=== PATIENT | male | born 1955 | race Caucasian/White ===

== ENCOUNTER 2019-04-13 20:26 | Emergency (ER) | payer BC ==
[2016-03-26 12:27] VITALS: BP 161/88
[~2019-04-13 20:26] MED LIST: ADAL40PE SQ; ATEN100T PO; CELE200C PO; DULO60CA6 PO; HYDR-3164 PO; LISI-130 PO; MELO15TA23 PO
== END 2019-04-13 22:18 | disposition left against medical advice (07) ==
LOC: ER 20:26
DX: T14.8XXA Other injury of unspecified body region, initial encounter (principal); Z53.21 Procedure and treatment not carried out due to patient leaving prior to being seen by health care provider; W54.0XXA Bitten by dog, initial encounter; Y93.89 Activity, other specified; Y92.89 Other specified places as the place of occurrence of the external cause; Y99.8 Other external cause status

== ENCOUNTER → 2019-05-17 | Outpatient (CLI) | payer BC ==
[2016-03-26 12:27] VITALS: BP 161/88
[~2019-05-17] MED LIST changes: +TRAM50TA PO
[2019-05-17 09:37] LABS: BASO % 1 % (0-3); EOS # 0.2 x10^3/uL (0.0-0.7); EOS % 4 % (0-3); HEMATOCRIT 43.1 % (39.0-53.0); HEMOGLOBIN 14.4 g/dL (13.0-17.5); LYMPH # 1.3 x10^3/uL (1.0-4.8); LYMPH % 26 % (24-48); MEAN CORPUSCULAR HEMOGLOBIN 33 pg (25-35); MEAN CORPUSCULAR HGB CONC 33 g/dL (31-37); MEAN CORPUSCULAR VOLUME 98 fL (79-100); MONO # 0.6 x10^3/uL (0.0-1.1); MONO % 12 % (0-9); NEUT # 2.8 x10^3/uL (1.8-7.7); NEUT % 57 % (31-73); PLATELET COUNT 183 x10^3/uL (140-400); RED CELL DISTRIBUTION WIDTH 13.7 % (11.5-14.5); WHITE BLOOD COUNT 4.9 x10^3/uL (4.0-11.0)
[2019-05-17 09:48] LABS: PROTHROMBIN TIME PATIENT 12.6 SEC (11.7-14.0)
[2019-05-17 10:21] LABS: ALBUMIN 3.8 g/dL (3.4-5.0); CALCIUM 9.3 mg/dL (8.5-10.1); CREATININE 0.9 mg/dL (0.7-1.3); GFR 85.2; POTASSIUM 4.2 mmol/L (3.5-5.1)
[2019-05-18 00:07] LABS: HEMOGLOBIN A1C 6.2 % (4.8-5.6)
== END | disposition home or self-care (01) ==
LOC: SURGPAT 08:45
PROVIDERS: ATTEND Orthopaedic Surgery
DX: Z01.812 Encounter for preprocedural laboratory examination (principal); M17.12 Unilateral primary osteoarthritis, left knee; Z88.8 Allergy status to other drugs, medicaments and biological substances
CPT/HCPCS: 36415; 80048; 82040; 82306; 83036; 85025; 85610; 85651; 85730

== ENCOUNTER → 2019-06-01 | Outpatient (CLI) | payer BC ==
[2016-03-26 12:27] VITALS: BP 161/88
[~2019-06-01] MED LIST changes: +AMLO10TA8 PO; +ATOR40TA59 PO; +CALC60FO2 TP; +ESCITALOPRAM OX20 MG PO; +EZET10TA20 PO; +METF10007 PO; +METF500S5 PO; +METO50TA6 PO
--- NOTE | 2019-06-01 16:34 | RAD ---
EXAM: Chest, 2 views. HISTORY: Pain. COMPARISON: 03/19/2016 FINDINGS: 2 views of the chest are obtained. There is no infiltrate, pleural effusion or pneumothorax. The heart is normal in size. There is a stable granuloma overlying the left upper lobe. IMPRESSION: No acute pulmonary finding. Electronically signed by: Swapna Meredith MD (06/01/2019 4:32 PM) [id number]
== END | disposition home or self-care (01) ==
LOC: SURGPAT 13:26
PROVIDERS: ATTEND Orthopaedic Surgery
DX: Z01.818 Encounter for other preprocedural examination (principal); M17.12 Unilateral primary osteoarthritis, left knee; J84.10 Pulmonary fibrosis, unspecified
CPT/HCPCS: 36415; 71046; 87641

== ENCOUNTER 2019-06-15 11:31 | Observation (INO) | payer BC ==
[2019-06-15] VITALS (9 sets, daily range): BP systolic 101–141; BP diastolic 43–69
[~2019-06-15] VITALS: Ht 180.3 cm; Wt 117.9 kg
[~2019-06-15 11:31] MED LIST changes: +ACETAMINOPHEN 500 MG TABLET PO PRN; +CELECOXIB 100 MG CAPSULE. PO ONE; +HYDROmorphone 2 MG/ML VIAL IV PRN; +IV RINGERS,LACTATED 1000ML 1,000 ML IV SCH; +LIDOCAINE 1% PF 2 ML VIAL. ID PRN; +MORPHINE SULFATE 2 MG/ML VIAL. IV PRN; +ONDA4TAB12 PO; +OXYC1TAB15 PO; +PROCHLORPERAZINE 10 MG/2 ML VIAL. IV PRN; +TRANEXAMIC ACID 1,000 MG in IV NS 50ML -- 1ST BAG INJ ONE; +TRANEXAMIC ACID 1,000 MG in IV NS 50ML -- 2ND BAG INJ ONE; +VANCOMYCIN 1GM IVPB FOR OMNI 250 ML IV PRN; +ceFAZolin SODIUM 3 GM in IV D5W 100 ML IV PRN; +fentaNYL PF VIAL 100 MCG/2 ML VIAL IV PRN
[2019-06-15] MEDS ORDERED: TOBRAMYCIN POWDER 1.2 GM VIAL. ONE (11:54)
[2019-06-15] MEDS ORDERED: VANCOMYCIN 1 GM VIAL. ONE ×2 (11:54)
[2019-06-15] MEDS ORDERED: MORPHINE SULFATE 5 MG, KETOROLAC 30MG VIAL 30 MG, ROPIVacaine 0.5% PF 60 ML, EPINEPHrin... INT ART ONE ×5 (12:15)
[2019-06-15] MEDS ORDERED: CELECOXIB 100 MG CAPSULE. ONE (12:24)
[2019-06-15] MEDS ORDERED: INSULIN LISPRO 100 UNIT/ML 3ML VIAL for OP,RR ONLY. SQ PRN (12:30)
[2019-06-15 12:32] LABS: CREATININE 0.8 mg/dL (0.7-1.3); GFR 97.6; POTASSIUM 4.1 mmol/L (3.5-5.1)
[2019-06-15] MEDS ORDERED: MIDAZOLAM HCL/PF 2 MG/2 ML VIAL. ONE (12:34)
[2019-06-15] MEDS ORDERED: FAMOTIDINE 20 MG/2 ML VIAL ONE (12:34)
[2019-06-15] MEDS ORDERED: LIDOCAINE 2% PF 5 ML VIAL. ONE (12:34)
[2019-06-15] MEDS ORDERED: DEXAMETHASONE SOD PHOS 4 MG/ML VIAL ONE (12:34)
[2019-06-15] MEDS ORDERED: fentaNYL PF VIAL 100 MCG/2 ML VIAL ONE ×2 (12:34→15:17)
[2019-06-15] MEDS ORDERED: PROPOFOL 20 ML IV ONE (12:34)
[2019-06-15] MEDS ORDERED: ONDANSETRON PF 4 MG/2 ML VIAL. ONE (12:34)
[2019-06-15] MEDS ORDERED: ePHEDrine PF IN SALINE 50 MG/10 ML SYRINGE. IV ONE (12:55)
[2019-06-15] MEDS ORDERED: SEVOFLURANE 61 TO 120 MINUTES. IH ONE (14:04)
--- NOTE | 2019-06-15 14:17 | PDOC4 ---
Operative Note Operative Note Date of Procedure: June 15, 2019 Pre-Op Diagnosis: Left knee cellulitis and hematoma L03.116 Post-Op Diagnosis: Left knee cellulitis and hematoma L03.116 Procedure: irrigation and debridement left knee deep hematoma CPT 84660 Surgeon: Soledad Solano MD Instructional Technologist: ALLY Younger Anesthesia: General EBL: 50 mL Specimens Obtained: 1. superficial (bursa) fluid for aerobic, anaerobic, fungal and AFB cultures, sent in a specimen cup, there is a possibility that this culture is contaminated by skin young because the fluid ran over the skin as it flowed into the specimen cup 2. deep (synovial) fluid for aerobic, anaerobic, fungal, and AFB cultures sent in a specimen cup Complications: none Drains: none Findings: deep heavily clotted/coagulated hematoma, and a superficial hemat warner/bursal fluid collection which was more serous and not clotted. No apparent infection. Indications for Procedure: Mr. Weinberg had left total knee arthroplasty 7 days ago. 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 Much of that synovium was excised at the time of the surgery, using electrocautery. He has been on aspirin for DVT prophylaxis. He was more active than I would have liked over the weekend, and apparently had a plumbing leak at home that caused him to work up on a ladder cutting out part of the ceiling and doing a plumbing repair. I saw him in the office yesterday, and he has serous fluid still draining from the incision, has saturated several of his dressings, and has extensive ecchymosis of the leg and thigh. I attempted aspiration in the office using a 16-gauge needle, but was unable to retrieve any joint fluid, presumably because there is a clotted hematoma. I recommended incision and drainage of hematoma, and we will hold off on aggressive therapy, decrease his activity, and possibly stop the use of aspirin. He agrees with surgical incision and drainage. My index of suspicion for any infection is very low, and I think we should give him preoperative antibiotics before the incision and drainage of the hematoma, but I will take intraoperative cultures. All of his questions about surgery were answered and he desires to proceed. Procedure in Detail: The patient was identified in the preoperative holding are a. The correct left lower extremity was marked by me. The patient was taken to the operating room where general anesthetic was used. The patient was positioned supine on the operating table. A tourniquet was applied to the upper portion of the limb. The tourniquet was never inflated but was in preparation if needed. Preoperative antibiotics were given intravenously, and due to a prior positive MRSA culture, he was given both vancomycin and cephalexin. A timeout procedure was performed. The limb was prepared in sterile fashion with Betadine scrub and then Betadine paint. Sterile drapes were applied. An impervious stockinette was used over the lower limb and secured with a Coban. The operating team wore the personal exhaust ventilated hoods. The tourniquet had been applied but I did not inflate it, so that I could assess for areas of bleeding, and plans to use the tourniquet only if needed for excessive bleeding. The previous incision was reopened sharply, and sutures were removed. The subcutaneous layer has copious amounts of bursal fluid, not clotted, and as this fluid ran over the skin I sent this for cultures. There is prominent bursal tissue (and he likely has mild chronic prepatellar bursitis. I had not excised the bursa previously but I did excise some of the bursa now. There was still quite a bit of subcutaneous tissue oozing, no major vessels, but difficult to achieve hemostasis even with persistent electrocautery. The deep capsular sutures were now incised, and the deep clotted hematoma was encountered. I used a rongeurs to grasp the clotted hematoma and sent this for the deep cultures. There is no evidence of infection. There was a large amount of deep clotted hematoma, and persistent bleeding from the remaining synovium. Electrocautery was used, thoroughly, and despite this it was difficult to achieve hemostasis. The Hang interpulse maritime guard was used. I first used a liter of Bactisure irrigation solution, and continued to irrigate and flush the knee of residual hematoma, including the suprapatellar pouch, the medial and lateral gutters, and the intercondylar notch. Next copious saline irrigation was used. Betadine lavage was used next. Final copious saline irrigation was used. I used a 3 L bag of sterile saline and irrigated that throughout the joint and tissues. There were small bleeders in the proximal capsular quadriceps region and Bovie electrocautery was used for hemostasis. Hemostasis was achieved, but was difficult due to persistent oozing from almost all the surfaces of the tissue. I cleansed the skin again with a Betadine-soaked laparotomy sponge, and I debrided the unroofed and loose skin from the blisters using the laparotomy sponge. The skin was then cleansed with a saline soaked laparotomy sponges and dried. Outer gloves were changed. The incision was closed carefully in layers. #1 PDS was used in a [id number] fashion throughout the medial capsular incision. #1 StrataFix was used in a running fashion and the medial capsule. #2-0 PDS was used in the s ubcutaneous tissues using inverted interrupted pattern. The skin was reapproximated with terry. Xeroform was applied. Needle and sponge counts were correct. There were no apparent complications. SOLEDAD SOLANO MD Jun 15, 2019 14:17
--- NOTE | 2019-06-15 14:20 | PDOC1 ---
History and Physical Date of Admission Date of Admission DATE: 06/15/19 TIME: 14:18 Identification/Chief Complaint Chief Complaint Left knee hematoma Source Source: Chart review, Patient History of Present Illness History of Present Illness Mr. Mallory is a 63-year-old man who had left knee arthroplasty 7 days ago. I saw him in the office yesterday with persistent bloody drainage. I attempted aspiration but no fluid could be obtained. He has extensive ecchymosis, some serous drainage from the skin, and probable hemarthrosis which is clotted on examination. He is here for irrigation of the total knee arthroplasty hematoma. Past Medical History Cardiovascular: HTN, Hyperlipidemia Pulmonary: Other Psych: Depression Past Surgical History Past Surgical History: Other Family History Family History: No Significant Social History ALCOHOL: heavy Drugs: None Current Medications Current Medications Current Medications Fentanyl Citrate (Fentanyl 2ml Vial) 25 mcg PRN Q5MIN PRN IV MILD PAIN 1-3; Start 06/15/19 at 07:00; Stop 06/16/19 at 06:59 Fentanyl Citrate (Fentanyl 2ml Vial) 50 mcg PRN Q5MIN PRN IV MODERATE TO SEVERE PAIN; Start 06/15/19 at 07:00; Stop 06/16/19 at 06:59 Morphine Sulfate (Morphine Sulfate) 1 mg PRN Q10MIN PRN IV SEVERE PAIN 7-10; Start 06/15/19 at 07:00; Stop 06/16/19 at 06:59 Ringer's Solution 1,000 ml @ 30 mls/hr Q24H IV ; Start 06/15/19 at 07:00; Stop 06/15/19 at 18:59 Lidocaine HCl (Xylocaine-Mpf 1% 2ml Vial) 2 ml PRN 1X PRN ID PRIOR TO IV START; Start 06/15/19 at 07:00; Stop 06/16/19 at 06:59 Hydromorphone HCl (Dilaudid) 0.5 mg PRN Q10MIN PRN IV SEV PAIN, Second choice; Start 06/15/19 at 07:00; Stop 06/16/19 at 06:59 Prochlorperazine Edisylate (Compazine) 5 mg PACU PRN PRN IV NAUSEA, MRX1; Start 06/15/19 at 07:00; Stop 06/16/19 at 06:59 Acetaminophen (Tylenol) 1,000 mg 1X PREOP PRN PO PRIOR TO PROCEDURE Last administered on 06/15/19at 12:29; Start 06/15/19 at 06:00; Stop 06/15/19 at 18:00 Cefazolin Sodium 3 gm/Dextrose 100 ml @ 200 mls/hr 1X PREOP PRN IV PRIOR TO PROCEDURE; Start 06/15/19 at 06:00; Stop 06/15/19 at 18:00 Vancomycin HCl 250 ml @ 250 mls/hr 1X PREOP PRN IV PRIOR TO PROCEDURE Last administered on 06/15/19at 12:12; Start 06/15/19 at 06:00; Stop 06/15/19 at 18:00 Tranexamic Acid 1000 mg/Sodium Chloride 60 ml @ 60 mls/hr 1X PERIOP ONCE INJ ; Start 06/15/19 at 06:00; Stop 06/15/19 at 06:59; Status DC Tranexamic Acid 1000 mg/Sodium Chloride 60 ml @ 60 mls/hr 1X PERIOP ONCE INJ ; Start 06/15/19 at 08:00; Stop 06/15/19 at 08:59; Status DC Celecoxib (CeleBREX) 400 mg ONCE ONCE PO Last administered on 06/15/19at 12:29; Start 06/15/19 at 06:00; Stop 06/15/19 at 06:01; Status DC Vancomycin HCl (Vancomycin) 1 gm STK-MED ONCE .ROUTE Last administered on 06/15/19at 13:25; Start 06/15/19 at 11:54; Stop 06/15/19 at 11:54; Status DC Tobramycin Sulfate (Tobramycin Powder) 1.2 gm STK-MED ONCE .ROUTE ; Start 06/15/19 at 11:54; Stop 06/15/19 at 11:54; Status DC Vancomycin HCl (Vancomycin) 1 gm STK-MED ONCE .ROUTE ; Start 06/15/19 at 11:54; Stop 06/15/19 at 11:54; Status DC Morphine Sulfate 5 mg/Ketorolac Tromethamine 30 mg/Ropivacaine 60 ml/Epinephrine HCl 0.5 mg/Sodium Chloride 100 ml @ 100 mls/hr 1X ONCE INT ART ; Start 06/15/19 at 12:15; Stop 06/15/19 at 13:14; Status DC Celecoxib (CeleBREX) 100 mg STK-MED ONCE .ROUTE ; Start 06/15/19 at 12:24; Stop 06/15/19 at 12:24; Status DC Insulin Human Lispro (HumaLOG VIAL for OP,RR ONLY) 0-10 units PRN Q1HR PRN SQ PER PROTOCOL Last administered on 06/15/19at 12:38; Start 06/15/19 at 12:30; Stop 06/16/19 at 12:29 Propofol 20 ml @ As Directed STK-MED ONCE IV ; Start 06/15/19 at 12:34; Stop 06/15/19 at 12:34; Status DC Dexamethasone Sodium Phosphate (Decadron) 4 mg STK-MED ONCE .ROUTE ; Start 06/15/19 at 12:34; Stop 06/15/19 at 12:34; Status DC Famotidine (Pepcid Vial) 20 mg STK-MED ONCE .ROUTE ; Start 06/15/19 at 12:34; Stop 06/15/19 at 12:34; Status DC Lidocaine HCl (Lidocaine Pf 2% Vial) 5 ml STK-MED ONCE .ROUTE ; Start 06/15/19 at 12:34; Stop 06/15/19 at 12:34; Status DC Ondansetron HCl (Zofran) 4 mg STK-MED ONCE .ROUTE ; Start 06/15/19 at 12:34; Stop 06/15/19 at 12:34; Status DC Fentanyl Citrate (Fentanyl 2ml Vial) 100 mcg STK-MED ONCE .ROUTE ; Start 06/15/19 at 12:34; Stop 06/15/19 at 12:34; Status DC Midazolam HCl (Versed) 2 mg STK-MED ONCE .ROUTE ; Start 06/15/19 at 12:34; Stop 06/15/19 at 12:34; Status DC Ephedrine Sulfate (ePHEDrine PF IN SALINE SYRINGE) 50 mg STK-MED ONCE IV ; Start 06/15/19 at 12:55; Stop 06/15/19 at 12:55; Status DC Sevoflurane (Ultane) 60 ml STK-MED ONCE IH ; Start 06/15/19 at 14:04; Stop 06/15/19 at 14:05; Status DC Active Scripts Active Ondansetron Odt (Ondansetron) 4 Mg Tab.rapdis 4 Mg PO PRN Q6HRS PRN 8 Days Take one tablet by mouth every 6 hrs prn nausea. Percocet 5-325 Mg Tablet (Oxycodone/Acetaminophen) 1 Each Tablet 2 Tab PO PRN Q4HRS PRN MDD 8 tablets daily 14 Days Reported Amlodipine Besylate 10 Mg Tablet 10 Mg PO DAILY Atorvastatin Calcium 40 Mg Tablet 1 Tab PO DAILY Metformin HCl 500 Mg/5 Ml Solution 500 Mg PO BIDAC Metoprolol Tartrate 50 Mg Tablet 1 Tab PO BID Escitalopram Oxalate 20 Mg Tablet 1 Tab PO DAILY Zetia (Ezetimibe) 10 Mg Tablet 1 Tab PO DAILY 30 Days Lisinopril 40 Mg Tablet 1 Tab PO DAILY Celebrex (Celecoxib) 200 Mg Capsule 1 Cap PO DAILY Allergies Allergies: Coded Allergies: atorvastatin (Verified Allergy, Intermediate, 06/15/19) venlafaxine (Verified Allergy, Intermediate, Unknown, 06/15/19) I S O L A T I O N *CONTACT* (Verified Allergy, Unknown, 06/15/19) mrsa bupropion (Verified Adverse Reaction, Intermediate, 06/15/19) CAUSED INCREASED PAIN sertraline (Verified Adverse Reaction, Intermediate, Unknown, 06/15/19) Physical Exam General: Alert HEENT: Atraumatic Lungs: Normal air movement Heart: RRR Abdomen: Soft Extremities: Other (There is serous drainage from the incision. There is extensive ecchymosis of the leg and some cellulitis. There is no purulent drainage, no warmth, no systemic fevers, no obvious infection. There is a hemarthrosis on examination.) Skin: Other (He had still has some persistent psoriatic lesions. There are some blisters which have previously ruptured around the knee.) Neuro: Normal speech, Sensation intact Vitals Vitals Vital Signs Date Time Temp Pulse Resp B/P (MAP) Pulse Ox O2 Delivery O2 Flow Rate FiO2 06/15/19 11:57 97.4 57 20 151/69 95 Room Air 97.4 Labs Labs Laboratory Tests Test 06/15/19 12:00 06/15/19 12:15 Erythrocyte Sedimentation Rate 60 (0-15) Sodium Level 137 mmol/L (136-145) Potassium Level 4.1 mmol/L (3.5-5.1) Chloride Level 103 mmol/L (98-107) Carbon Dioxide Level 24 mmol/L (21-32) Anion Gap 10 (6-14) Blood Urea Nitrogen 16 mg/dL (8-26) Creatinine 0.8 mg/dL (0.7-1.3) Estimated GFR (Cockcroft-Gault) 97.6 Glucose Level 114 mg/dL (70-99) Calcium Level 9.0 mg/dL (8.5-10.1) C-Reactive Protein, Quantitative 52.0 mg/L (0-3.3) Glucose (Fingerstick) 119 mg/dL (70-99) Laboratory Tests Test 06/15/19 12:00 06/15/19 12:15 Erythrocyte Sedimentation Rate 60 (0-15) Sodium Level 137 mmol/L (136-145) Potassium Level 4.1 mmol/L (3.5-5.1) Chloride Level 103 mmol/L (98-107) Carbon Dioxide Level 24 mmol/L (21-32) Anion Gap 10 (6-14) Blood Urea Nitrogen 16 mg/dL (8-26) Creatinine 0.8 mg/dL (0.7-1.3) Estimated GFR (Cockcroft-Gault) 97.6 Glucose Level 114 mg/dL (70-99) Calcium Level 9.0 mg/dL (8.5-10.1) C-Reactive Protein, Quantitative 52.0 mg/L (0-3.3) Glucose (Fingerstick) 119 mg/dL (70-99) VTE Prophylaxis Ordered VTE Prophylaxis Devices: Yes VTE Pharmacological Prophylaxi: Contraindicated Assessment/Plan Assessment/Plan He is here for irrigation and debridement of the left knee hemarthrosis and hematoma. SOLEDAD GALEAS MD Jun 15, 2019 14:20
[2019-06-15] MEDS ORDERED: fentaNYL PF VIAL 100 MCG/2 ML VIAL IVP PRN ×2 (14:45)
[2019-06-15] MEDS ORDERED: MORPHINE SULFATE 4 MG/ML VIAL. IVP PRN (14:45)
[2019-06-15] MEDS ORDERED: diphenhydrAMINE 50 MG/ML VIAL IVP PRN (14:45)
[2019-06-15] MEDS ORDERED: CALCIUM CARBONATE 500 MG TAB.CHEW PO PRN (14:45)
[2019-06-15] MEDS ORDERED: METOCLOPRAMIDE HCL 10 MG/2 ML VIAL. IVP PRN (14:45)
[2019-06-15] MEDS ORDERED: MORPHINE SULFATE 2 MG/ML VIAL. IVP PRN (14:45)
[2019-06-15] MEDS ORDERED: PROCHLORPERAZINE 5 MG TABLET. PO PRN (14:45)
[2019-06-15] MEDS ORDERED: 0.9 % SODIUM CHLORIDE 10 ML DISP.SYRIN. IV PRN (14:45)
[2019-06-15] MEDS ORDERED: DEXTROSE 50% 25 GM / 50ML DISP.SYRIN. IV PRN (14:45)
[2019-06-15] MEDS ORDERED: ONDANSETRON ODT 4 MG TAB.RAPDIS. PO PRN (14:45)
[2019-06-15] MEDS ORDERED: ZOLPIDEM 5 MG TABLET. PO PRN (14:45)
--- NOTE | 2019-06-15 14:46 | PDOC ---
Provider Note Provider Note Due to the hematoma, and persistent bleeding at surgery, I am going to hold his aspirin. For DVT prophylaxis we can use mechanical devices, and early mobilization. SOLEDAD GALEAS MD Jun 15, 2019 14:46
[2019-06-15] MEDS: fentaNYL PF VIAL 100 MCG/2 ML VIAL IV PRN ×2 (15:30→15:39)
[2019-06-15] MEDS: INSULIN LISPRO 300 UNITS/3 ML VIAL. SQ SCH (16:28)
[2019-06-15] MEDS ORDERED: FLU VAX QS 2019-20 (36MOS+)/PF 0.5 ML SYRINGE. VAX IM ONE (17:00)
[2019-06-15] MEDS: metFORMIN 500 MG TABLET PO SCH (17:09)
[2019-06-15] MEDS: oxyCODONE/APAP 5/325 1 TAB TABLET PO PRN ×2 (17:09→21:12)
[2019-06-15] MEDS: ONDANSETRON ODT 4 MG TAB.RAPDIS. PO SCH (17:09)
[2019-06-15] MEDS: IV NORMAL SALINE 1000ML BAG 1,000 ML IV SCH (17:10)
[2019-06-15] MEDS: ONDANSETRON PF 4 MG/2 ML VIAL. IVP SCH (18:00)
[2019-06-15] MEDS: METOPROLOL TART IMMED RELEASE 50 MG TABLET. PO SCH (20:37)
[2019-06-16] MEDS ORDERED: VANCOMYCIN 1 GM in IV NORMAL SALINE 250ML 250 ML IV ONE ×2
[2019-06-16] MEDS: oxyCODONE/APAP 5/325 1 TAB TABLET PO PRN ×4 (01:46→14:20)
[2019-06-16 02:44] VITALS: BP 105/54
[2019-06-16 04:18] LABS: BASO % 0 % (0-3); EOS % 0 % (0-3); HEMATOCRIT 30.2 % (39.0-53.0); HEMOGLOBIN 10.4 g/dL (13.0-17.5); LYMPH # 0.5 x10^3/uL (1.0-4.8); LYMPH % 8 % (24-48); MEAN CORPUSCULAR HEMOGLOBIN 34 pg (25-35); MEAN CORPUSCULAR HGB CONC 34 g/dL (31-37); MEAN CORPUSCULAR VOLUME 98 fL (79-100); MONO # 0.4 x10^3/uL (0.0-1.1); MONO % 5 % (0-9); NEUT # 5.9 x10^3/uL (1.8-7.7); NEUT % 87 % (31-73); PLATELET COUNT 232 x10^3/uL (140-400); RED BLOOD COUNT 3.07 x10^6/uL (4.30-5.70); RED CELL DISTRIBUTION WIDTH 13.4 % (11.5-14.5); WHITE BLOOD COUNT 6.8 x10^3/uL (4.0-11.0)
[2019-06-16 04:41] LABS: % BANDS 2 % (0-9); % LYMPHS 9 % (24-48); % MONOS 2 % (0-10); % SEGS 87 % (35-66); ANISOCYTOSIS SLIGHT; PLT ESTIMATE ADEQUATE (ADEQUATE); POLYCHROMASIA SLIGHT
[2019-06-16] MEDS: ONDANSETRON ODT 4 MG TAB.RAPDIS. PO SCH ×3 (06:00→11:51)
[2019-06-16] MEDS: ONDANSETRON PF 4 MG/2 ML VIAL. IVP SCH ×3 (06:00→11:51)
[2019-06-16] MEDS ORDERED: MAGNESIUM HYDROXIDE 2,400 MG/30 ML ORAL.SUSP. PO PRN (06:00)
[2019-06-16 07:00] VITALS: BP 127/63
[2019-06-16] MEDS: INSULIN LISPRO 300 UNITS/3 ML VIAL. SQ SCH ×2 (07:46→11:51)
[2019-06-16] MEDS: metFORMIN 500 MG TABLET PO SCH (08:11)
[2019-06-16] MEDS: METOPROLOL TART IMMED RELEASE 50 MG TABLET. PO SCH (08:13)
--- NOTE | 2019-06-16 08:34 | NUR ---
SW following. Discussed with RN, pt from home with . Currently on IV abx. RN advised no SW needs at this time. GERBER will continue to follow. Addendum: 06/16/19 at 1534 by JUAREZ MAYES OT recommending home with outpatient therapy. Pt will need a script for outpatient therapy to take to the outpatient therapy office of his choosing. RN awaiting Dr. Solano to round. GERBER will continue to follow.
[2019-06-16] MEDS ORDERED: EZETIMIBE 10 MG TABLET. PO SCH (09:00)
[2019-06-16] MEDS ORDERED: CITALOPRAM 20 MG TABLET. PO SCH (09:00)
[2019-06-16] MEDS ORDERED: CELECOXIB 100 MG CAPSULE. PO SCH (09:00)
[2019-06-16] MEDS ORDERED: MULTIVITAMIN with MINERAL TABLET. PO SCH (09:00)
[2019-06-16] MEDS ORDERED: SENNOSIDES/DOCUSATE 8.6/50MG TABLET. PO SCH (09:00)
[2019-06-16] MEDS ORDERED: LISINOPRIL 20 MG TABLET PO SCH (09:00)
[2019-06-16] MEDS ORDERED: amLODIPine BESYLATE 10 MG TABLET PO SCH (09:00)
[2019-06-16 11:00] VITALS: BP 119/64
[2019-06-16] MEDS ORDERED: ONDANSETRON PF 4 MG/2 ML VIAL. IVP PRN (12:00)
[2019-06-16] MEDS ORDERED: ONDANSETRON ODT 4 MG TAB.RAPDIS. PO PRN (12:00)
--- NOTE | 2019-06-16 12:48 | PDOC ---
ORTHO PROGRESS NOTES Subjective Patient is feeling well today, pain controlled, swelling down in the knee. Post-op Day: 1 Procedure irrigation and debridement left knee deep hematoma CPT 68538 Vitals Vital Signs Date Time Temp Pulse Resp B/P (MAP) Pulse Ox O2 Delivery O2 Flow Rate FiO2 06/16/19 11:09 Room Air 06/16/19 11:00 98.7 65 18 119/64 (82) 93 98.7 06/15/19 17:09 2.0 Labs Laboratory Tests Test 06/15/19 12:00 06/15/19 12:15 06/15/19 14:37 06/15/19 16:19 Erythrocyte Sedimentation Rate 60 (0-15) Sodium Level 137 mmol/L (136-145) Potassium Level 4.1 mmol/L (3.5-5.1) Chloride Level 103 mmol/L (98-107) Carbon Dioxide Level 24 mmol/L (21-32) Anion Gap 10 (6-14) Blood Urea Nitrogen 16 mg/dL (8-26) Creatinine 0.8 mg/dL (0.7-1.3) Estimated GFR (Cockcroft-Gault) 97.6 Glucose Level 114 mg/dL (70-99) Calcium Level 9.0 mg/dL (8.5-10.1) C-Reactive Protein, Quantitative 52.0 mg/L (0-3.3) Glucose (Fingerstick) 119 mg/dL (70-99) 127 mg/dL (70-99) 126 mg/dL (70-99) Test 06/15/19 20:42 06/16/19 03:35 06/16/19 07:32 06/16/19 11:44 Glucose (Fingerstick) 194 mg/dL (70-99) 139 mg/dL (70-99) 148 mg/dL (70-99) White Blood Count 6.8 x10^3/uL (4.0-11.0) Red Blood Count 3.07 x10^6/uL (4.30-5.70) Hemoglobin 10.4 g/dL (13.0-17.5) Hematocrit 30.2 % (39.0-53.0) Mean Corpuscular Volume 98 fL (79-100) Mean Corpuscular Hemoglobin 34 pg (25-35) Mean Corpuscular Hemoglobin Concent 34 g/dL (31-37) Red Cell Distribution Width 13.4 % (11.5-14.5) Platelet Count 232 x10^3/uL (140-400) Neutrophils (%) (Auto) 87 % (31-73) Lymphocytes (%) (Auto) 8 % (24-48) Monocytes (%) (Auto) 5 % (0-9) Eosinophils (%) (Auto) 0 % (0-3) Basophils (%) (Auto) 0 % (0-3) Neutrophils # (Auto) 5.9 x10^3/uL (1.8-7.7) Lymphocytes # (Auto) 0.5 x10^3/uL (1.0-4.8) Monocytes # (Auto) 0.4 x10^3/uL (0.0-1.1) Eosinophils # (Auto) 0.0 x10^3/uL (0.0-0.7) Basophils # (Auto) 0.0 x10^3/uL (0.0-0.2) Segmented Neutrophils % 87 % (35-66) Band Neutrophils % 2 % (0-9) Lymphocytes % 9 % (24-48) Monocytes % 2 % (0-10) Platelet Estimate Adequate (ADEQUATE) Polychromasia Slight Anisocytosis Slight Laboratory Tests Test 06/15/19 14:37 06/15/19 16:19 06/15/19 20:42 06/16/19 03:35 Glucose (Fingerstick) 127 mg/dL (70-99) 126 mg/dL (70-99) 194 mg/dL (70-99) White Blood Count 6.8 x10^3/uL (4.0-11.0) Red Blood Count 3.07 x10^6/uL (4.30-5.70) Hemoglobin 10.4 g/dL (13.0-17.5) Hematocrit 30.2 % (39.0-53.0) Mean Corpuscular Volume 98 fL (79-100) Mean Corpuscular Hemoglobin 34 pg (25-35) Mean Corpuscular Hemoglobin Concent 34 g/dL (31-37) Red Cell Distribution Width 13.4 % (11.5-14.5) Platelet Count 232 x10^3/uL (140-400) Neutrophils (%) (Auto) 87 % (31-73) Lymphocytes (%) (Auto) 8 % (24-48) Monocytes (%) (Auto) 5 % (0-9) Eosinophils (%) (Auto) 0 % (0-3) Basophils (%) (Auto) 0 % (0-3) Neutrophils # (Auto) 5.9 x10^3/uL (1.8-7.7) Lymphocytes # (Auto) 0.5 x10^3/uL (1.0-4.8) Monocytes # (Auto) 0.4 x10^3/uL (0.0-1.1) Eosinophils # (Auto) 0.0 x10^3/uL (0.0-0.7) Basophils # (Auto) 0.0 x10^3/uL (0.0-0.2) Segmented Neutrophils % 87 % (35-66) Band Neutrophils % 2 % (0-9) Lymphocytes % 9 % (24-48) Monocytes % 2 % (0-10) Platelet Estimate Adequate (ADEQUATE) Polychromasia Slight Anisocytosis Slight Test 06/16/19 07:32 06/16/19 11:44 Glucose (Fingerstick) 139 mg/dL (70-99) 148 mg/dL (70-99) Notes Pt A&Ox3, eating breakfast. LEFT knee swelling down compared to last Friday when I last saw him. Bandage partially saturated so after obtaining new dressing, removed and cleansed with chlorhexadine, 4x4 reapplied followed by ABD pads, 6" DENEEN wrap. Calf nontender bilterally, neg rfank's sign bilaterally. thigh nontender. No distress, Neurovascularly intact. DP pulses 2+. Labs: cultures negative with no growth. VS normal. Problems: (1) Aftercare following left knee joint replacement surgery Assessment and Plan Monitor dressing and if drainage persists, then dressing change should occur. Dressing change daily. ICS, No medicaiton changes. PT/OT to maintain ROM, strength outpatient when discharged to home. Anticipate discharge today. AZUCENA BAILEY Jr. [facility] Jun 16, 2019 12:48 pm
[2019-06-16] MEDS: IV NORMAL SALINE 1000ML BAG 1,000 ML IV SCH (14:40)
[2019-06-16 15:00] VITALS: BP 111/55
[2019-06-16] MEDS ORDERED: BISACODYL 10 MG SUPP.RECT. PR PRN (16:00)
--- NOTE | 2019-06-16 16:28 | DISCH ---
DISCHARGE INSTRUCTIONS Condition on Discharge Condition on Discharge: Stable Activity After Discharge Activity Instructions for Disc: Activity as tolerated, Progressive ambulation Bathing Instructions: Shower-keep dressing dry Lifting Instructions after Dis: No heavy lifting, Do not lift >10 pounds Exercise Instruction after Dis: Exercise per therapy, Progress as tolerated Driving Instructions after Dis: No driving for 2 weeks Weight Bearing Status after Di: As tolerated Diet after Discharge Diet after Discharge: Regular Diet Texture: Regular Liquid Texture: Thin Liquid Swallowing Supervision: None needed Wound Incision Care Wound/Incision Care: Ice to area for comfort, Keep wound/cast CDI, Do not change dressing Checks after Discharge Checks after discharge: Check blood press - daily, Check blood sugar, ac/hs Contacting the DR. after DC Call your doctor for: If your condition worsens Follow-Up Follow up with: Dr [facility]ano [facility]. Call [phone] AZUCENA BAILEY Jr. [facility] Jun 16, 2019 16:28
--- NOTE | 2019-06-16 16:58 | PDOC ---
PROGRESS NOTES Subjective Subjective Doing better today Objective Vital Signs Vital Signs Date Time Temp Pulse Resp B/P (MAP) Pulse Ox O2 Delivery O2 Flow Rate FiO2 06/16/19 15:59 Room Air 06/16/19 15:00 98.4 60 18 111/55 (73) 95 98.4 06/15/19 17:09 2.0 Physical Exam Incision dry now, dressing changed earlier today. Knee looks and feels better. Labs Micro doesn't even have preliminary results yet. Two specimens sent yesterday. I will follow these as outpatient. Laboratory Tests Test 06/15/19 12:00 06/15/19 12:15 06/15/19 14:37 06/15/19 16:19 Erythrocyte Sedimentation Rate 60 (0-15) Sodium Level 137 mmol/L (136-145) Potassium Level 4.1 mmol/L (3.5-5.1) Chloride Level 103 mmol/L (98-107) Carbon Dioxide Level 24 mmol/L (21-32) Anion Gap 10 (6-14) Blood Urea Nitrogen 16 mg/dL (8-26) Creatinine 0.8 mg/dL (0.7-1.3) Estimated GFR (Cockcroft-Gault) 97.6 Glucose Level 114 mg/dL (70-99) Calcium Level 9.0 mg/dL (8.5-10.1) C-Reactive Protein, Quantitative 52.0 mg/L (0-3.3) Glucose (Fingerstick) 119 mg/dL (70-99) 127 mg/dL (70-99) 126 mg/dL (70-99) Test 06/15/19 20:42 06/16/19 03:35 06/16/19 07:32 06/16/19 11:44 Glucose (Fingerstick) 194 mg/dL (70-99) 139 mg/dL (70-99) 148 mg/dL (70-99) White Blood Count 6.8 x10^3/uL (4.0-11.0) Red Blood Count 3.07 x10^6/uL (4.30-5.70) Hemoglobin 10.4 g/dL (13.0-17.5) Hematocrit 30.2 % (39.0-53.0) Mean Corpuscular Volume 98 fL (79-100) Mean Corpuscular Hemoglobin 34 pg (25-35) Mean Corpuscular Hemoglobin Concent 34 g/dL (31-37) Red Cell Distribution Width 13.4 % (11.5-14.5) Platelet Count 232 x10^3/uL (140-400) Neutrophils (%) (Auto) 87 % (31-73) Lymphocytes (%) (Auto) 8 % (24-48) Monocytes (%) (Auto) 5 % (0-9) Eosinophils (%) (Auto) 0 % (0-3) Basophils (%) (Auto) 0 % (0-3) Neutrophils # (Auto) 5.9 x10^3/uL (1.8-7.7) Lymphocytes # (Auto) 0.5 x10^3/uL (1.0-4.8) Monocytes # (Auto) 0.4 x10^3/uL (0.0-1.1) Eosinophils # (Auto) 0.0 x10^3/uL (0.0-0.7) Basophils # (Auto) 0.0 x10^3/uL (0.0-0.2) Segmented Neutrophils % 87 % (35-66) Band Neutrophils % 2 % (0-9) Lymphocytes % 9 % (24-48) Monocytes % 2 % (0-10) Platelet Estimate Adequate (ADEQUATE) Polychromasia Slight Anisocytosis Slight Laboratory Tests Test 06/15/19 20:42 06/16/19 03:35 06/16/19 07:32 06/16/19 11:44 Glucose (Fingerstick) 194 mg/dL (70-99) 139 mg/dL (70-99) 148 mg/dL (70-99) White Blood Count 6.8 x10^3/uL (4.0-11.0) Red Blood Count 3.07 x10^6/uL (4.30-5.70) Hemoglobin 10.4 g/dL (13.0-17.5) Hematocrit 30.2 % (39.0-53.0) Mean Corpuscular Volume 98 fL (79-100) Mean Corpuscular Hemoglobin 34 pg (25-35) Mean Corpuscular Hemoglobin Concent 34 g/dL (31-37) Red Cell Distribution Width 13.4 % (11.5-14.5) Platelet Count 232 x10^3/uL (140-400) Neutrophils (%) (Auto) 87 % (31-73) Lymphocytes (%) (Auto) 8 % (24-48) Monocytes (%) (Auto) 5 % (0-9) Eosinophils (%) (Auto) 0 % (0-3) Basophils (%) (Auto) 0 % (0-3) Neutrophils # (Auto) 5.9 x10^3/uL (1.8-7.7) Lymphocytes # (Auto) 0.5 x10^3/uL (1.0-4.8) Monocytes # (Auto) 0.4 x10^3/uL (0.0-1.1) Eosinophils # (Auto) 0.0 x10^3/uL (0.0-0.7) Basophils # (Auto) 0.0 x10^3/uL (0.0-0.2) Segmented Neutrophils % 87 % (35-66) Band Neutrophils % 2 % (0-9) Lymphocytes % 9 % (24-48) Monocytes % 2 % (0-10) Platelet Estimate Adequate (ADEQUATE) Polychromasia Slight Anisocytosis Slight Assessment Assessment POD#1 knee hematoma I&D Plan Plan of Residential today. Office FU 06/27 SOLEDAD GALEAS MD Jun 16, 2019 16:57
--- NOTE | 2019-06-16 17:00 | NUR ---
Pt. discharged to home verbalized understanding of discharge instructions. L knee dressing CDI. Keflex sent to pharmacy per Dr. bangura.
== END 2019-06-16 16:55 | disposition home or self-care (01) ==
LOC: SURG 11:31 → 4 NORTH 16:32
PROVIDERS: ADMIT Orthopaedic Surgery; ATTEND Orthopaedic Surgery
DX: M96.840 Postprocedural hematoma of a musculoskeletal structure following a musculoskeletal system procedure (principal); L03.116 Cellulitis of left lower limb; I10 Essential (primary) hypertension; E78.5 Hyperlipidemia, unspecified; F32.9 Major depressive disorder, single episode, unspecified
CPT/HCPCS: 27301; 36415; 80048; 82962; 85007; 85025; 85651; 86140; 87071; 87075; 87102; 87116; 87641; 90471; 90686; 96365; 96366; 96367; 96368; 96375; 97110; 97116; 97162; 97165; G0378; G0379; J0171; J0696; J1100; J1815; J1885; J2001; J2250; J2270; J2405; J2704; J2795; J3010; J3370; J3490; J7030; J7050; J7120; J3260; A4461; C1769; Q0162

== ENCOUNTER → 2019-11-24 | Outpatient (CLI) | payer BC ==
[~2019-11-24] MED LIST changes: -ACETAMINOPHEN 500 MG TABLET PO PRN; -CELECOXIB 100 MG CAPSULE. PO ONE; -HYDROmorphone 2 MG/ML VIAL IV PRN; -IV RINGERS,LACTATED 1000ML 1,000 ML IV SCH; -LIDOCAINE 1% PF 2 ML VIAL. ID PRN; -MORPHINE SULFATE 2 MG/ML VIAL. IV PRN; -PROCHLORPERAZINE 10 MG/2 ML VIAL. IV PRN; -TRANEXAMIC ACID 1,000 MG in IV NS 50ML -- 1ST BAG INJ ONE; -TRANEXAMIC ACID 1,000 MG in IV NS 50ML -- 2ND BAG INJ ONE; -VANCOMYCIN 1GM IVPB FOR OMNI 250 ML IV PRN; -ceFAZolin SODIUM 3 GM in IV D5W 100 ML IV PRN; -fentaNYL PF VIAL 100 MCG/2 ML VIAL IV PRN
--- NOTE | 2019-11-25 08:53 | KCIC ---
EXAM: CHEST 2 VIEWS. HISTORY: At risk medical therapy. COMPARISON: 06/01/2019. FINDINGS: Frontal and lateral views of the chest are obtained. There are no confluent infiltrates. No interstitial changes are appreciated. There is a calcified granuloma in the left upper lobe. There is no pneumothorax or pleural effusion. The heart is not enlarged. IMPRESSION: 1. No confluent infiltrates. Electronically signed by: Ashleigh Coon MD (11/25/2019 8:51 AM) [id number]
== END | disposition home or self-care (01) ==
LOC: KCIC 11:14
PROVIDERS: ATTEND Physician Assistant
DX: J98.4 Other disorders of lung (principal); Z79.899 Other long term (current) drug therapy
CPT/HCPCS: 71046

== ENCOUNTER → 2020-02-28 | Outpatient (CLI) | payer BC ==
[~2020-02-28] MED LIST changes: +AMLO-186 PO; +AMLO-187 PO; -AMLO10TA8 PO; +ASPI-630 PO; +LISI10TA2 PO; +METO-239 PO; +OMEP20TA8 PO
[2020-02-28 13:42] LABS: BASO # 0.1 x10^3/uL (0.0-0.2); BASO % 1 % (0-3); EOS # 0.3 x10^3/uL (0.0-0.7); EOS % 4 % (0-3); HEMOGLOBIN 11.9 g/dL (13.0-17.5); LYMPH # 1.7 x10^3/uL (1.0-4.8); LYMPH % 20 % (24-48); MEAN CORPUSCULAR HEMOGLOBIN 33 pg (25-35); MEAN CORPUSCULAR HGB CONC 34 g/dL (31-37); MEAN CORPUSCULAR VOLUME 96 fL (79-100); MONO # 0.5 x10^3/uL (0.0-1.1); MONO % 6 % (0-9); NEUT # 5.7 x10^3/uL (1.8-7.7); NEUT % 69 % (31-73); PLATELET COUNT 260 x10^3/uL (140-400); RED BLOOD COUNT 3.63 x10^6/uL (4.30-5.70); RED CELL DISTRIBUTION WIDTH 13.6 % (11.5-14.5); WHITE BLOOD COUNT 8.2 x10^3/uL (4.0-11.0)
[2020-02-28 13:58] LABS: PROTHROMBIN TIME PATIENT 13.3 SEC (11.7-14.0)
[2020-02-28 14:12] LABS: ALBUMIN 3.4 g/dL (3.4-5.0); C-REACTIVE PROTEIN 0.7 mg/L (0-3.3); CALCIUM 8.9 mg/dL (8.5-10.1); CREATININE 1.2 mg/dL (0.7-1.3); POTASSIUM 4.4 mmol/L (3.5-5.1)
[2020-02-29 00:08] LABS: HEMOGLOBIN A1C 5.8 % (4.8-5.6)
== END ==
LOC: SURGPAT 12:50
PROVIDERS: ATTEND Orthopaedic Surgery
DX: Z01.812 Encounter for preprocedural laboratory examination (principal); M17.11 Unilateral primary osteoarthritis, right knee; Z96.611 Presence of right artificial shoulder joint
CPT/HCPCS: 36415; 80048; 82040; 82306; 83036; 85025; 85610; 85730; 86140; 87641

== ENCOUNTER → 2020-03-16 | Outpatient (CLI) | payer BC | LOC: LAB 14:21 | PROVIDERS: ATTEND Orthopaedic Surgery | DX: Z01.812 Encounter for preprocedural laboratory examination (principal); Z20.828 Contact with and (suspected) exposure to other viral communicable diseases | CPT/HCPCS: U0003 ==

== ENCOUNTER 2020-03-20 10:21 | Observation (INO) | payer BC ==
--- NOTE | 2020-03-19 18:39 | PDOC1 ---
History and Physical Date of Admission Date of Admission 03/20/2020 Identification/Chief Complaint Chief Complaint right knee osteoarthritis pain Source Source: Chart review, Patient History of Present Illness History of Present Illness 64 year old with osteoarthritis of his right knee. Walking is painful. Pain interferes with ADLs, he has daily symptoms, and affects his quality of life. Had left TKA in June 2019 which is doing well now, although he had a washout about 1 week postop due to hemarthrosis. Here for elective R TKA Past Medical History Past Medical History psoriasis tubular adenoma psoriatic arthritis HTN sleep apnea hyperlipidemia Cardiovascular: HTN, Hyperlipidemia Pulmonary: Other Psych: Depression Musculoskeletal: Osteoarthritis Dermatology: Psoriasis Past Surgical History Past Surgical History: Total knee replacement, Other Family History Family History parents are both Family History: No Significant Social History Smoke: Quit ALCOHOL: heavy Drugs: None Current Medications Current Medications Current Medications Ondansetron HCl (Zofran) 4 mg PRN Q6HRS PRN IV NAUSEA/VOMITING; Start 03/20/20 at 07:00; Stop 03/21/20 at 06:59 Fentanyl Citrate (Fentanyl 2ml Vial) 25 mcg PRN Q5MIN PRN IV MILD PAIN 1-3; Start 03/20/20 at 07:00; Stop 03/21/20 at 06:59 Fentanyl Citrate (Fentanyl 2ml Vial) 50 mcg PRN Q5MIN PRN IV MODERATE TO SEVERE PAIN; Start 03/20/20 at 07:00; Stop 03/21/20 at 06:59 Morphine Sulfate (Morphine Sulfate) 1 mg PRN Q10MIN PRN IV SEVERE PAIN 7-10; Start 03/20/20 at 07:00; Stop 03/21/20 at 06:59 Ringer's Solution 1,000 ml @ 30 mls/hr Q24H IV ; Start 03/20/20 at 07:00; Stop 03/20/20 at 18:59 Lidocaine HCl (Xylocaine-Mpf 1% 2ml Vial) 2 ml PRN 1X PRN ID PRIOR TO IV START; Start 03/20/20 at 07:00; Stop 03/21/20 at 06:59 Hydromorphone HCl (Dilaudid) 0.5 mg PRN Q10MIN PRN IV SEV PAIN, Second choice; Start 03/20/20 at 07:00; Stop 03/21/20 at 06:59 Prochlorperazine Edisylate (Compazine) 5 mg PACU PRN PRN IV NAUSEA, MRX1; Start 03/20/20 at 07:00; Stop 03/21/20 at 06:59 Aspirin (Courtney Aspirin) 325 mg BID PO ; Start 03/20/20 at 21:00 Celecoxib (CeleBREX) 400 mg 1X PREOP PRN PO PRIOR TO SURGERY; Start 03/20/20 at 08:00 Acetaminophen (Tylenol) 1,000 mg 1X PREOP PRN PO PRIOR TO PROCEDURE; Start 03/20/20 at 06:00; Stop 03/20/20 at 18:00 Cefazolin Sodium/ Dextrose 50 ml @ 100 mls/hr 1X PREOP PRN IV PRIOR TO PROCEDURE; Start 03/20/20 at 06:00; Stop 03/20/20 at 18:00 Vancomycin HCl 250 ml @ 250 mls/hr 1X PREOP PRN IV PRIOR TO PROCEDURE; Start 03/20/20 at 06:00; Stop 03/20/20 at 18:00 Morphine Sulfate 5 mg/Ketorolac Tromethamine 30 mg/Ropivacaine 60 ml/Epinephrine HCl 0.5 mg/Sodium Chloride 100 ml @ 100 mls/hr 1X PERIOP ONCE INT ART ; Start 03/20/20 at 06:00; Stop 03/20/20 at 06:59 Tranexamic Acid 1000 mg/Sodium Chloride 60 ml @ 60 mls/hr 1X PERIOP ONCE INJ ; Start 03/20/20 at 06:00; Stop 03/20/20 at 06:59 Tranexamic Acid 1000 mg/Sodium Chloride 60 ml @ 60 mls/hr 1X PERIOP ONCE INJ ; Start 03/20/20 at 08:00; Stop 03/20/20 at 08:59 Active Scripts Active Reported Omeprazole 20 Mg Tablet.dr 1 Tab PO DAILY Aspirin 81 Mg Tab.chew 1 Tab PO DAILY Lisinopril 10 Mg Tablet 1 Tab PO DAILY Amlodipine Besylate 5 Mg Tablet 5 Mg PO DAILY Metoprolol Succinate ( Xl ) (Metoprolol Succinate) 25 Mg Tab.er.24h 1 Tab PO DAILY Atorvastatin Calcium 40 Mg Tablet 1 Tab PO DAILY Metformin HCl 500 Mg/5 Ml Solution 500 Mg PO BIDAC Zetia (Ezetimibe) 10 Mg Tablet 1 Tab PO DAILY 30 Days Celebrex (Celecoxib) 200 Mg Capsule 1 Cap PO DAILY Allergies Allergies: Coded Allergies: risankizumab-rzaa (Verified Allergy, Severe, RASH, 02/28/20) atorvastatin (Verified Allergy, Intermediate, 02/28/20) venlafaxine (Verified Allergy, Intermediate, Unknown, 02/28/20) I S O L A T I O N *CONTACT* (Verified Allergy, Unknown, 02/28/20) mrsa bupropion (Verified Adverse Reaction, Intermediate, 02/28/20) CAUSED INCREASED PAIN sertraline (Verified Adverse Reaction, Intermediate, Unknown, 02/28/20) Physical Exam General: Alert, Cooperative HEENT: Atraumatic Lungs: Normal air movement Heart: RRR Abdomen: Soft Extremities: Other (The RIGHT knee shows a [mildly antalgic] gait. There is [varus] alignment. No masses. [No detectable] effusion. Tenderness on the joint lines. Range of motion is [5-115] degrees. There is crepitus with range of motion, and pain at the extremes of motion. The knee is stable to varus and valgus stress without subluxation or laxity. Muscle strength is slightly weak for the quadriceps 4+/5 which may be due to pain or avoidance, and does not seem neurogenic, and the muscle tone and bulk is slightly decreased. The hamstring strength is 5/5. The skin is normal with no scars, rashes, lesions or ulcers. Light touch sensation is intact. No edema and no varicosities. Dorsalis pedis pulse is intact and capillary refill is normal.) Neuro: Normal speech, Sensation intact Images Images PATIENT: BRENT AN JACCOUNT: [id number] : 1955 LOCATION: [facility] AGE: 64 SEX: M EXAM STATUS: PRE CLI ORD. PHYSICIAN: SOLEDAD GALEAS MD REASON: PROCEDURE: KNEE RIGHT 2V EXAM: AP view both knees, lateral and tangential patellar view right knee DATE: 02/14/2020 12:00 AM INDICATION: Reason: RIGHT KNEE PAIN / Spl. Instructions: / History: COMPARISON: 06/08/2019 FINDINGS: Severe right knee joint osteophytes arthritis with medial compartment joint space effacement and tricompartmental osteophytes. Neutral patellar tracking. Small right knee joint effusion. Vascular calcifications are seen. Single AP view left knee demonstrates changes of left total knee arthroplasty, incompletely assessed. Subtle periprosthetic lucency at the medial aspect of the medial tibial plateau may be projectional and can be further assessed by dedicated left knee radiographs if clinically indicated. IMPRESSION: 1. Severe right knee joint osteoarthritis. 2. No evidence of acute fracture or dislocation. 3. Equivocal periprosthetic lucency subjacent to the medial tibial component, can be assessed by dedicated left knee radiographs if clinically indicated. Electronically signed by: Jovi Fisher MD (02/14/2020 4:53 PM) [id number] DICTATED and SIGNED BY: JOVI FISHER MD DATE: 02/14/20 1653 VTE Prophylaxis Ordered VTE Prophylaxis Devices: Yes VTE Pharmacological Prophylaxi: Yes Assessment/Plan Assessment/Plan We discussed RBA of total knee arthroplasty. He tried nonop treatment without success. He is here today for elective TKA. Justifications for Admission Other Justification SOLEDAD GALEAS MD Mar 19, 2020 18:39
[~2020-03-20] VITALS: Ht 180.3 cm; Wt 114.3 kg
[~2020-03-20 10:21] MED LIST changes: +ACETAMINOPHEN 500 MG TABLET PO PRN; +CELECOXIB 100 MG CAPSULE. PO PRN; +DEXAMETHASONE SOD PHOS 4 MG/ML VIAL ONE; +HYDROmorphone 2 MG/ML VIAL IV PRN; +IV RINGERS,LACTATED 1000ML 1,000 ML IV SCH; +LIDOCAINE 1% PF 2 ML VIAL. ID PRN; +LIDOCAINE 2% PF 5 ML VIAL. ONE; +MORPHINE SULFATE 2 MG/ML VIAL. IV PRN; +ONDANSETRON PF 4 MG/2 ML VIAL. IV PRN; +ONDANSETRON PF 4 MG/2 ML VIAL. ONE; +PROCHLORPERAZINE 10 MG/2 ML VIAL. IV PRN; +PROPOFOL 10 MG/ML (20ML) VIAL. IV ONE; +TOBRAMYCIN POWDER 1.2 GM VIAL. ONE; +TRANEXAMIC ACID 1,000 MG in IV NS 50ML -- 1ST BAG INJ ONE; +TRANEXAMIC ACID 1,000 MG in IV NS 50ML -- 2ND BAG INJ ONE; +TV=100ml MORPHINE 5 MG, KETOROLAC 30 MG, ROPIVacaine 0.5% PF 60 ML, EPINEPH... INT ART ONE; +VANCOMYCIN 1 GM VIAL. ONE; +VANCOMYCIN 1GM IVPB FOR OMNI 250 ML IV PRN; +fentaNYL PF VIAL 100 MCG/2 ML VIAL IV PRN
--- NOTE | 2020-03-20 10:41 | NUR ---
PT COMPLETED MRSA PROTOCOL.
[2020-03-20] MEDS ORDERED: INSULIN LISPRO 100 UNIT/ML 3ML VIAL for OP,RR ONLY. SQ PRN (10:45)
[2020-03-20] MEDS ORDERED: fentaNYL PF VIAL 100 MCG/2 ML VIAL ONE ×3 (11:54→13:58)
[2020-03-20] MEDS ORDERED: SEVOFLURANE 61 TO 120 MINUTES. IH ONE (13:29)
[2020-03-20] MEDS ORDERED: PROCHLORPERAZINE 10 MG/2 ML VIAL. ONE (13:59)
[2020-03-20] MEDS ORDERED: fentaNYL PF VIAL 100 MCG/2 ML VIAL IVP PRN (14:00)
[2020-03-20] MEDS ORDERED: DEXTROSE 50% 25 GM / 50ML DISP.SYRIN. IV PRN (14:00)
[2020-03-20] MEDS ORDERED: diphenhydrAMINE 50 MG/ML VIAL IVP PRN (14:00)
[2020-03-20] MEDS ORDERED: oxyCODONE/APAP 10/325 1 TAB TABLET PO PRN (14:00)
[2020-03-20] MEDS ORDERED: ZOLPIDEM 5 MG TABLET. PO PRN (14:00)
[2020-03-20] MEDS ORDERED: METOCLOPRAMIDE HCL 10 MG/2 ML VIAL. IVP PRN (14:00)
[2020-03-20] MEDS ORDERED: IV NORMAL SALINE 1000ML BAG 1,000 ML IV SCH (14:00)
[2020-03-20] MEDS ORDERED: CALCIUM CARBONATE 500 MG TAB.CHEW PO PRN (14:00)
[2020-03-20] MEDS ORDERED: 0.9 % SODIUM CHLORIDE 10 ML DISP.SYRIN. IV PRN (14:00)
[2020-03-20] MEDS ORDERED: PROCHLORPERAZINE 5 MG TABLET. PO PRN (14:00)
--- NOTE | 2020-03-20 14:11 | PDOC4 ---
Operative Note Operative Note Date of Procedure: March 20, 2020 Pre-Op Diagnosis: Unilateral primary osteoarthritis, right knee. M17.11 Post-Op Diagnosis: same Procedure: right total knee arthroplasty with patella resurfacing, robotic assisted, CPT 57226 Surgeon: Soledad Solano MD Location And Measurement Technician: ALLY Younger Anesthesia: General EBL: 100 mL Specimens Obtained: right knee bone and soft tissue Complications: none Drains: Hemovac plus pain catheter Tourniquet time: 60 Minutes Tourniquet Pressure: 350 mm Hg Indications for Procedure: Knee arthritis pain, affecting quality of life, unrelieved by nonoperative management Findings: Severe osteoarthritis with bone on bone contact medially with full thickness cartilage loss in the patellofemoral and lateral compartments. Some synovitis but to my recollection this knee did not have nearly the amount of synovitis and inflammation as the left knee. This knee seemed like a more straightforward arthritic knee. (My recollection of the left knee was dense sclerotic bone and severe synovitis.) There was a fixed varus deformity which required osteophyte excision medially and medial soft tissue release. Implants: [employer]gore [employer] Nephew Journey II Total Knee System, Size 6 right bicruciate stabilized Journey II BCS Oxinium femoral component, size 6 right Journey nonpo mary tibial baseplate, size 5-6 13 mm right Journey II BCS XLPE articular insert, 35 mm oval Colette II resurfacing patellar component Procedure in Detail: The patient was identified in the preoperative holding area, and the correct right lower extremity was marked by me. The patient was taken to the operating room where the patient was anesthetized by the Department of Anesthesia. Preoperative antibiotics were given intravenously. Tranexamic acid 1 g was given intravenously for intraoperative hemostasis. A "time-out" procedure was performed. The patient was positioned supine on the operative table with a tourniquet on the upper right thigh. A right hip bump and heel bump were attached to the operating table for later intraoperative positioning. The right lower limb was thoroughly scrubbed, then sterile Chloraprep solution was applied, and the limb was draped in sterile fashion. The operating team wore exhaust ventilated hoods with [employer] Personal Protection Toga Zippered Peel-Away protection system. An impervious stockinet and an adhesive drape were used such that the skin was entirely covered. The limb was exsanguinated with an Esmarch bandage, and the tourniquet was inflated. A midline skin incision was made with a scalpel using the patella and tibial tubercle as landmarks. Electrocautery was used for hemostasis. My parking assistant used rake retractors and a laparotomy sponge. A medial parapatellar arthrotomy incision was used with extension into the distal quadriceps tendon. The patella was retracted laterally and Hohmann retractors were now used by my parking assistant. Excess synovium, the menisci, and the cruciate ligaments were resected sharply. A periarticular multimodal ropivacaine anesthetic injection was used in the suprapatellar pouch and distal quadriceps muscle. The patella was everted and exposed. The patella thickness was measured with a caliper, and then cut freehand with a saw, using caliper measurements to assess the resection. The lateral retinaculum was partially released from the lateral patella using electrocautery. Rongeurs were used to make sure there were no remaining exposed patellar osteophytes medially or laterally. The patella was sized, and then drilled for an oval three-peg patella component. The tibial tracker array for the NAVIO system was applied to the tibial crest four finger breadths below the tibial tubercle, using percutaneous incisions and bicortical pins. The femoral tracker array was applied outside of the original incision using two separate stab incisions using bicortical pins. Checkpoint verification pins were applied to the femur and tibia. Using the point probe, the medial and lateral malleoli were localized and the locations were stored. The center of the tibia was noted at the anterior cruciate ligament insertion and stored. The center of the femur was marked at the intersection of Whitesidess line with the transepicondylar axis. The hip center calculation was performed with range of motion of the hip. The femur neutral position was identified, and simulated weightbearing was performed with axial compression on the foot. Range of motion without stress was performed and the data collected. Range of motion with valgus stress, and range of motion with varus stress data collection was also performed. Rotational references include the Whitesidess line, and the trans-epicondylar axis. The femoral articular surface was now mapped in 3 dimensions using the point probe and digital data collected. The tibial condyle articular surfaces and cortical edges were mapped in 3 dimensions using the point probe including the medial and lateral tibial plateau. Implant planning was now performed on-screen with manipulation of the implant sizes, cut thicknesses and gaps, component rotation, component flexion/extension and component varus/valgus until satisfactory ligament balance, alignment and stability of the knee was expected throughout the range of motion. A medial release was required, using a 10 blade scalpel, and a Cobos elevator to elevate the medial structures from the upper medial tibia. My parking assistant held a Hohmann retractor, a medial Z-retractor, and an Army-[place] retractor to protect the medial and lateral collateral ligaments, the patellar tendon, the skin and the other soft tissues. The point probe was used to confirm the location of the checkpoint verification pins. The distal femoral surface was now prepared using the Anspach eduin with footpedal, and the NAVIO handpiece for bone removal to the previously planned distal femoral resection. The crosshairs at the pin locations were marked by using a mallet and the point probe for definitive location. A 5-in-1 Journey II cutting guide was then applied and the position was checked with the virtual artur wing from the NAVIO to ensure proper placement as the pins were applied. The posterior, anterior, and all chamfer cuts were made with the oscillating saw. Excess bone was removed with an osteotome and rongeurs. The tibial cutting guide was applied, positioned using the NAVIO virtual artur wing, and secured to the upper tibia using three pins at the previously planned location. The virtual artur wing was used to confirm the resection depth, slope and coronal alignment. The upper tibia was cut made with an oscillating saw. My parking assistant held Hohmann retractors and a posterior cruciate ligament retractor to protect the medial and lateral collateral ligaments, the patellar tendon, the skin, the peroneal nerve and the other soft tissues. The upper tibia was sized with a trial baseplate. The posterior compartment was cleared of osteophytes and loose bodies. The periarticular anesthetic injection was used in the posterior compartment. The box cut for a posterior stabilized component was made. A preliminary reduction was performed with a trial femur, trial tibial baseplate and trial polyethylene. The NAVIO system was used to confirm range of motion, and postoperative stressed gap assessment. The stability was assessed using different thicknesses of tibial articular surface to find satisfactory stability and good range of motion. The rotation of the tibial component was marked on the upper tibia. Final trial reduction was now performed verifying patella tracking and tibiofemoral stability and alignment. The bone pins and tracker arrays were removed, and the checkpoint verification pins were removed. The tibia preparation was completed with a drill, saw, and fin punch at the previously noted rotation. The final implants were verified and opened. Outer gloves were changed by the operating team. Betadine lavage was used. The bone cuts were irrigated with saline using the Pocketbook InterPulse device and then dried with suction and laparotomy sponges. Two packages of Kilgore + Nephew Rally HV bone cement were mixed in powdered form with Vancomycin 1gm and Tobramycin 1.2 gm, and then vacuum-mixed with the monomer, and placed into a cement gun. The cut surfaces of the bone were thoroughly dried with suction and with laparotomy sponges for cement interdigitation. The final components were cemented into place. The knee was kept at full extension while the cement hardened, and excess cement was removed. Tranexamic acid 1 g was redosed intravenously for additional intraoperative hemostasis. The tourniquet was released, and electrocautery was used for hemostasis. A final periarticular anesthetic injection was used for pain relief. The bone pin sites on the tibial crest were closed with #3-0 Nylon sutures. A final check of [id number] and stability was made, and the polyethylene implant final size was chosen. The polyethylene implant was secured to the tibial baseplate, and the knee was reduced a final time and range of motion and stability was confirmed. Thorough irrigation was used. A pain catheter, and a 10 Fr Hemovac were inserted. Topical Vancomycin 1 gm was used during the closure. The arthrotomy was closed with interrupted [id number] #1 Vicryl suture. The subcutaneous tissues were approximated initially with #2-0 Vicryl inverted interrupted sutures by my parking assistant. Next the subcuticular layer was approxima cyril in a running fashion with #3-0 STRATAFIX suture by my parking assistant. The skin incision was then covered and reinforced by my parking assistant with Acticoat, followed by a BORA single use negative pressure wound therapy dressing Soft roll and an Gael wrap were applied. Needle and sponge counts were correct. There were no apparent complications. The patient returned to the recovery room in stable condition. SOLEDAD SOLANO MD Mar 20, 2020 14:11
[2020-03-20] MEDS: fentaNYL PF VIAL 100 MCG/2 ML VIAL IV PRN ×4 (14:29→15:20)
--- NOTE | 2020-03-20 14:51 | RAD ---
Two-view right knee dated 03/20/2020. No comparison available. CLINICAL INDICATION: Postop total knee arthroplasty FINDINGS: 2 views performed. Interval total knee arthroplasty. Femoral and tibial components are intact. No per iprosthetic fracture or malalignment. Posterior changes of the patella. Diffuse soft tissue swelling and soft tissue gas with suprapatellar drain in place. IMPRESSION: Status post right knee arthroplasty. Electronically signed by: Damoen Durham MD (03/20/2020 2:48 PM) [id number]
[2020-03-20 15:45] VITALS: BP 135/75
[2020-03-20 16:15] VITALS: BP 143/75
[2020-03-20 16:45] VITALS: BP 145/71
--- NOTE | 2020-03-20 16:51 | NUR ---
Rec'd from PACU per bed, alert/oriented, dressing clean, dry & intact to RLE, Hemovac & IAC in place, IVF infusing into left forearm, ANTHONY canseco & SCD on LLE, MELINDA on RLE, has own walker plans Outpatient Therapy @ [facility] as previous, has CPAP for bedtime use, oriented to surroundings, call light within reach, see admission for details.
[2020-03-20] MEDS: INSULIN LISPRO 300 UNITS/3 ML VIAL. SQ SCH (17:00)
--- NOTE | 2020-03-20 17:00 | NUR ---
FSBS held already completed meal
[2020-03-20 17:15] VITALS: BP 136/74
[2020-03-20] MEDS: KETOROLAC 30MG VIAL 30 MG, BUPIVACAINE MPF 0.25% 20 ML, EPINEPHrine 0.5 MG in TOTAL VOL... INT ART SCH (17:42)
[2020-03-20] MEDS: ONDANSETRON ODT 4 MG TAB.RAPDIS. PO SCH ×2 (17:43→23:46)
[2020-03-20] MEDS: ONDANSETRON PF 4 MG/2 ML VIAL. IVP SCH ×2 (17:43→23:46)
[2020-03-20] MEDS: metFORMIN 500 MG TABLET PO SCH (17:43)
--- NOTE | 2020-03-20 18:00 | NUR ---
Zofran held no nausea or vomiting noted
--- NOTE | 2020-03-20 19:00 | NUR ---
at bedside. Yao is up in the recliner. He has good motion, sensation and pulses bilateral lower extremities. no complaints of pain at this time
[2020-03-20] MEDS: ASPIRIN ENTERIC COATED 325 MG TABLET.DR. PO SCH (19:39)
[2020-03-20] MEDS: MORPHINE SULFATE 4 MG/ML VIAL. IVP PRN ×2 (19:40→23:23)
[2020-03-20] MEDS: ASPIRIN 325 MG TABLET PO SCH (19:45)
[2020-03-20] MEDS: oxyCODONE/APAP 10/325 1 TAB TABLET PO PRN (21:02)
--- NOTE | 2020-03-20 22:00 | NUR ---
requesting pain medication states that it all of sudden was apparent. medicated with Morphine. continues to sit up in recliner.
[2020-03-20 23:00] VITALS: BP 137/76
[2020-03-20] MEDS ORDERED: VANCOMYCIN 1 GM in IV NORMAL SALINE 250ML 250 ML IV ONE (23:00)
[2020-03-21 03:00] VITALS: BP 137/74
[2020-03-21] MEDS: oxyCODONE/APAP 10/325 1 TAB TABLET PO PRN ×5 (03:26→20:55)
[2020-03-21] MEDS: PANTOPRAZOLE 40 MG TABLET.DR. PO SCH (05:55)
[2020-03-21] MEDS: KETOROLAC 30MG VIAL 30 MG, BUPIVACAINE MPF 0.25% 20 ML, EPINEPHrine 0.5 MG in TOTAL VOL... INT ART SCH (05:55)
[2020-03-21] MEDS: ONDANSETRON PF 4 MG/2 ML VIAL. IVP SCH ×2 (05:55→12:00)
[2020-03-21] MEDS: ONDANSETRON ODT 4 MG TAB.RAPDIS. PO SCH ×2 (06:00→12:00)
[2020-03-21] MEDS ORDERED: MAGNESIUM HYDROXIDE 2,400 MG/30 ML ORAL.SUSP. PO PRN (06:00)
[2020-03-21 07:13] VITALS: BP 126/72
[2020-03-21 07:59] LABS: PROTHROMBIN TIME PATIENT 13.7 SEC (11.7-14.0)
[2020-03-21] MEDS: INSULIN LISPRO 300 UNITS/3 ML VIAL. SQ SCH ×3 (08:00→17:00)
[2020-03-21] MEDS: SENNOSIDES/DOCUSATE 8.6/50MG TABLET. PO SCH (08:17)
[2020-03-21] MEDS: LISINOPRIL 10 MG TABLET PO SCH (08:18)
[2020-03-21] MEDS: metFORMIN 500 MG TABLET PO SCH ×2 (08:18→17:20)
[2020-03-21] MEDS: EZETIMIBE 10 MG TABLET. PO SCH (08:18)
[2020-03-21] MEDS: METOPROLOL SUCC 24HR ER 25 MG TAB.ER.24H. PO SCH (08:18)
[2020-03-21] MEDS: CELECOXIB 100 MG CAPSULE. PO SCH (08:18)
[2020-03-21] MEDS: amLODIPine BESYLATE 5 MG TABLET PO SCH (08:19)
[2020-03-21] MEDS: ASPIRIN ENTERIC COATED 325 MG TABLET.DR. PO SCH ×2 (08:19→20:54)
[2020-03-21] MEDS: ACETAMINOPHEN 500 MG TABLET PO SCH ×3 (08:19→21:00)
[2020-03-21] MEDS: MULTIVITAMIN with MINERAL TABLET. PO SCH (08:23)
[2020-03-21] MEDS: ASPIRIN 325 MG TABLET PO SCH (08:23)
[2020-03-21] MEDS ORDERED: ONDANSETRON ODT 4 MG TAB.RAPDIS. PO PRN (12:00)
[2020-03-21] MEDS ORDERED: ONDANSETRON PF 4 MG/2 ML VIAL. IVP PRN (12:00)
--- NOTE | 2020-03-21 15:34 | NUR ---
DENEEN wrap removed after last therapy session. Hemovac and IAC discontinued with only a small amount of bleeding present. Foam dressing applied over the areas. BORA dressing with a small amount of old blood noted at the bottom of the BORA dressing. Slight bruising and swelling noted. Will monitor.
[2020-03-21] MEDS ORDERED: BISACODYL 10 MG SUPP.RECT. PR PRN (16:00)
--- NOTE | 2020-03-21 17:56 | PDOC ---
PROGRESS NOTES Date of Service DATE: 03/21/20 TIME: 17:55 Subjective Subjective Quite a bit of pain at first. Received IV pain meds to control. Objective Vital Signs Vital Signs Date Time Temp Pulse Resp B/P (MAP) Pulse Ox O2 Delivery O2 Flow Rate FiO2 03/21/20 17:46 95 Room Air 03/21/20 08:19 62 126/72 03/21/20 07:13 98.1 20 98.1 03/20/20 16:45 2.0 Physical Exam BORA intact and dry. Pain catheter and Hemovac have been removed. Calf soft and NT. Good AROM of foot and toes. Intact sensation distally. No sign of compartment syndrome or DVT. No blisters. Labs Laboratory Tests Test 03/20/20 11:02 03/20/20 15:07 03/21/20 07:02 03/21/20 07:20 Glucose (Fingerstick) 103 mg/dL (70-99) 156 mg/dL (70-99) 119 mg/dL (70-99) Prothrombin Time 13.7 SEC (11.7-14.0) Prothromb Time International Ratio 1.1 (0.8-1.1) Test 03/21/20 16:35 Glucose (Fingerstick) 151 mg/dL (70-99) Laboratory Tests Test 03/21/20 07:02 03/21/20 07:20 03/21/20 16:35 Glucose (Fingerstick) 119 mg/dL (70-99) 151 mg/dL (70-99) Prothrombin Time 13.7 SEC (11.7-14.0) Prothromb Time International Ratio 1.1 (0.8-1.1) Imaging Report reviewed, images independently reviewed. Satisfactory TKA without apparent complications. [facility] [address] [place], [place] [id number] IMAGING REPORT Signed PATIENT: DAMEON AN ACCOUNT: [id number] : 1955 LOCATION: [address] [place] [address] AGE: 64 SEX: M EXAM STATUS: ADM IN ORD. PHYSICIAN: SOLEDAD GALEAS MD REASON: POST OP PROCEDURE: KNEE RIGHT 2V Two-view right knee dated 03/20/2020. No comparison available. CLINICAL INDICATION: Postop total knee arthroplasty FINDINGS: 2 views performed. Interval total knee arthroplasty. Femoral and tibial components are intact. No periprosthetic fracture or malalignment. Posterior changes of the patella. Diffuse soft tissue swelling and soft tissue gas with suprapatellar drain in place. IMPRESSION: Status post right knee arthroplasty. Electronically signed by: Dameon Durham MD (03/20/2020 2:48 PM) [id number] DICTATED and SIGNED BY: DAMEON DURHAM MD DATE: 03/20/20 1446 Assessment Assessment POD# 1 after TKA Plan Plan of Care Continue PT. Not yet able to get out of bed without assistance. Need to watch incision for blisters. IV pain meds if necessary. Justicifation of Admission Dx: Justifications for Admission: Justification of Admission Dx: Yes SOLEDAD GALEAS MD Mar 21, 2020 17:56
[2020-03-21 18:02] VITALS: BP 131/50
[2020-03-22] MEDS: ACETAMINOPHEN 500 MG TABLET PO SCH ×2 (03:00→08:28)
[2020-03-22] MEDS: PANTOPRAZOLE 40 MG TABLET.DR. PO SCH (05:44)
[2020-03-22] MEDS: oxyCODONE/APAP 10/325 1 TAB TABLET PO PRN ×2 (05:45→12:20)
[2020-03-22 06:30] VITALS: BP 114/60
[2020-03-22] MEDS: INSULIN LISPRO 300 UNITS/3 ML VIAL. SQ SCH ×2 (08:00→11:41)
[2020-03-22] MEDS: EZETIMIBE 10 MG TABLET. PO SCH (08:28)
[2020-03-22] MEDS: ASPIRIN ENTERIC COATED 325 MG TABLET.DR. PO SCH (08:28)
[2020-03-22] MEDS: SENNOSIDES/DOCUSATE 8.6/50MG TABLET. PO SCH (08:28)
[2020-03-22] MEDS: metFORMIN 500 MG TABLET PO SCH (08:29)
[2020-03-22] MEDS: METOPROLOL SUCC 24HR ER 25 MG TAB.ER.24H. PO SCH (08:29)
[2020-03-22] MEDS: MULTIVITAMIN with MINERAL TABLET. PO SCH (08:29)
[2020-03-22] MEDS: CELECOXIB 100 MG CAPSULE. PO SCH (08:29)
[2020-03-22] MEDS: amLODIPine BESYLATE 5 MG TABLET PO SCH (08:29)
[2020-03-22] MEDS: LISINOPRIL 10 MG TABLET PO SCH (08:30)
[2020-03-22 09:49] LABS: PROTHROMBIN TIME PATIENT 12.4 SEC (11.7-14.0)
[2020-03-22 13:05] LABS: HEMATOCRIT 27.1 % (39.0-53.0); HEMOGLOBIN 9.1 g/dL (13.0-17.5)
--- NOTE | 2020-03-22 13:41 | PDOC ---
PROGRESS NOTES Date of Service DATE: 03/22/20 TIME: 13:40 Subjective Subjective Doing well. Planning for discharge today. Objective Vital Signs Vital Signs Date Time Temp Pulse Resp B/P (MAP) Pulse Ox O2 Delivery O2 Flow Rate FiO2 03/22/20 12:20 97 Room Air 03/22/20 08:30 64 114/60 03/22/20 06:30 98.0 22 98.0 03/20/20 16:45 2.0 Physical Exam BORA dressing changed. Incision benign. Labs Laboratory Tests Test 03/20/20 15:07 03/21/20 07:02 03/21/20 07:20 03/21/20 16:35 Glucose (Fingerstick) 156 mg/dL (70-99) 119 mg/dL (70-99) 151 mg/dL (70-99) Prothrombin Time 13.7 SEC (11.7-14.0) Prothromb Time International Ratio 1.1 (0.8-1.1) Test 03/22/20 05:46 03/22/20 08:30 Glucose (Fingerstick) 130 mg/dL (70-99) Hemoglobin 9.1 g/dL (13.0-17.5) Hematocrit 27.1 % (39.0-53.0) Mean Corpuscular Hemoglobin Concent 34 g/dL (31-37) Prothrombin Time 12.4 SEC (11.7-14.0) Prothromb Time International Ratio 1.0 (0.8-1.1) Laboratory Tests Test 03/21/20 16:35 03/22/20 05:46 03/22/20 08:30 Glucose (Fingerstick) 151 mg/dL (70-99) 130 mg/dL (70-99) Hemoglobin 9.1 g/dL (13.0-17.5) Hematocrit 27.1 % (39.0-53.0) Mean Corpuscular Hemoglobin Concent 34 g/dL (31-37) Prothrombin Time 12.4 SEC (11.7-14.0) Prothromb Time International Ratio 1.0 (0.8-1.1) Assessment Assessment POD #2 after TKA Plan Plan of Long-Term today. Oral pain meds. Aspirin BID for DVT prophylaxis. Follow up with my office next week. Home Health PT. Justicifation of Admission Dx: Justifications for Admission: Justification of Admission Dx: Yes SOLEDAD GALEAS MD Mar 22, 2020 13:41
--- NOTE | 2020-03-22 13:43 | PDOC3 ---
Discharge Summary Visit Information Date of Admission: Mar 20, 2020 Date of Discharge: Mar 22, 2020 Final Diagnosis Osteoarthritis right knee. Aftercare after right total knee arthroplasty. Brief Hospital Course Allergies Allergies Coded Allergies Type Severity Reaction Last Updated Verified risankizumab-rzaa Allergy Severe RASH 03/20/20 Yes atorvastatin Allergy Intermediate 03/20/20 Yes venlafaxine Allergy Intermediate Unknown 03/20/20 Yes I S O L A T I O N *CONTACT* Allergy Unknown 03/20/20 Yes bupropion Adverse Reaction Intermediate 03/20/20 Yes sertraline Adverse Reaction Intermediate Unknown 03/20/20 Yes Vital Signs Vital Signs Date Time Temp Pulse Resp B/P (MAP) Pulse Ox O2 Delivery O2 Flow Rate FiO2 03/22/20 12:20 97 Room Air 03/22/20 08:30 64 114/60 03/22/20 06:30 98.0 22 98.0 03/20/20 16:45 2.0 Lab Results Laboratory Tests Test 03/20/20 15:07 03/21/20 07:02 03/21/20 07:20 03/21/20 16:35 Glucose (Fingerstick) 156 mg/dL (70-99) 119 mg/dL (70-99) 151 mg/dL (70-99) Prothrombin Time 13.7 SEC (11.7-14.0) Prothromb Time International Ratio 1.1 (0.8-1.1) Test 03/22/20 05:46 03/22/20 08:30 Glucose (Fingerstick) 130 mg/dL (70-99) Hemoglobin 9.1 g/dL (13.0-17.5) Hematocrit 27.1 % (39.0-53.0) Mean Corpuscular Hemoglobin Concent 34 g/dL (31-37) Prothrombin Time 12.4 SEC (11.7-14.0) Prothromb Time International Ratio 1.0 (0.8-1.1) Laboratory Tests Test 03/21/20 16:35 03/22/20 05:46 03/22/20 08:30 Glucose (Fingerstick) 151 mg/dL (70-99) 130 mg/dL (70-99) Hemoglobin 9.1 g/dL (13.0-17.5) Hematocrit 27.1 % (39.0-53.0) Mean Corpuscular Hemoglobin Concent 34 g/dL (31-37) Prothrombin Time 12.4 SEC (11.7-14.0) Prothromb Time International Ratio 1.0 (0.8-1.1) Brief Hospital Course 64 year old who presented with knee osteoarthritis, for elective total knee arthroplasty. The patient underwent total knee arthroplasty under general anesthesia the day of admission. Perioperative antibiotics and DVT prophylaxis were used. Postoperatively physical therapy and case management were consulted. The patient progressed and is stable for discharge. Discharge Information Condition at Discharge: Stable Follow Up: Weeks Disposition/Orders: D/C to Home w/ HH Scheduled Amlodipine Besylate (Amlodipine Besylate), 5 MG PO DAILY, (Reported) Aspirin (Aspirin), 1 TAB PO DAILY, (Reported) Atorvastatin Calcium (Atorvastatin Calcium), 1 TAB PO DAILY, (Reported) Celecoxib (Celebrex), 1 CAP PO DAILY, (Reported) Ezetimibe (Zetia), 1 TAB PO DAILY, (Reported) Lisinopril (Lisinopril), 1 TAB PO DAILY, (Reported) Metformin HCl (Metformin HCl), 500 MG PO BIDAC, (Reported) Metoprolol Succinate (Metoprolol Succinate ( Xl )), 1 TAB PO DAILY, (Reported) Omeprazole (Omeprazole), 1 TAB PO DAILY, (Reported) Patient Instructions Patient Instructions Continue to weight bearing as tolerated with walker. Keep BORA dressing intact and dry. Follow up with Dr. Solano's office next week. Call for appointment unless already scheduled. Continue enteric coated aspirin 325 mg by m out twice a day for 30 days to prevent blood clots. Justicifation of Admission Dx: Justifications for Admission: Justification of Admission Dx: Yes SOLEDAD SOLANO MD Mar 22, 2020 13:43
--- NOTE | 2020-03-22 13:44 | SNU/HH DC ---
DISCHARGE WITH HOME HEALTH DISCHARGE INFORMATION: Discharge Date: Mar 22, 2020 Final Diagnosis: Osteoarthritis right knee. Aftercare after right total knee arthroplasty. Condition on Discharge: Stable CODE STATUS: Code Status: Full HOME HEALTH: Face to Face: I certify this patient is under my care and that I, or a nurse practitioner or physician's clerical assistant working with me, had a face to face encounter that meets the physician face to face encounter requirements with this patient on 03/22/2020 Medical Complications: S/P Joint Replacement RN For Eval/Treatment: No Physical Therapy For: Evalulation/Treatment Occupational Therapy For: Evaluation/Treatment Pt Meets Homebound Status: Unsteady balance w/ amb,, Limited distance walking (Plays) POST DISCHARGE ORDERS: Activity Instructions for Disc: Walk in house Weight Bearing Status after Di: No restrictions, Full weight bearing, As tolerated Bathing Instructions: Shower-keep dressing dry, No Tub Bath until see Wound/Incision Care: Ice to area for comfort, Keep wound/cast CDI, Keep wound elevated, Do not change dressing Other wound/incision instructi: remove Nathan battery pack on tuesday 03/27 unscrew tubing and tape down CHECKS AFTER DISCHARGE: Checks after discharge: Check blood press - daily, Check blood sugar, ac/hs FOLLOW-UP: Follow Up With: F/u Dr. Solano on 03/27 at 0915 if need to reschedule call [phone] Warfarin Follow UP: on aspirin 325mg (2) two times a day TREATMENT/EQUIPMENT ORDERS: Adaptive Equipment Issued: None CERTIFICATION STATEMENT: Certification Statement: Certification Statement: Based on the above finding, I certify that this patient is confined to the home and needs intermittent prison care, physical therapy and/or speech therapy, or continues to need occupational therapy.~ This patient is under my care, and I have initiated the establishment of the plan of care.~ This patient will be followed by myself or a community physician who will periodically review the plan of care. Home Meds Reported Medications Omeprazole (OMEPRAZOLE) 20 Mg Tablet., 1 TAB PO DAILY for GERD, #90 TAB 1 Refill 02/28/20 Aspirin (ASPIRIN) 81 Mg Tab.chew, 1 TAB PO DAILY for PREVENTATIVE, #30 TAB 3 Refills 02/28/20 Lisinopril (LISINOPRIL) 10 Mg Tablet, 1 TAB PO DAILY for HTN, #30 TAB 5 Refills 02/28/20 Amlodipine Besylate (AMLODIPINE BESYLATE) 5 Mg Tablet, 5 MG PO DAILY for HTN, TAB 02/28/20 Metoprolol Succinate (METOPROLOL SUCCINATE ( XL )) 25 Mg Tab.er.24h, 1 TAB PO DAILY for HIGH BP, #30 TAB 5 Refills 02/28/20 Atorvastatin Calcium (ATORVASTATIN CALCIUM) 40 Mg Tablet, 1 TAB PO DAILY for CHOLESTEROL, #30 TAB 5 Refills 06/08/19 Metformin HCl (Metformin HCl) 500 Mg/5 Ml Solution, 500 MG PO BIDAC for DM, MISC 06/08/19 Ezetimibe (ZETIA) 10 Mg Tablet, 1 TAB PO DAILY for cholesterol for 30 Days, #30 TAB 0 Refills 06/01/19 Celecoxib (CELEBREX) 200 Mg Capsule, 1 CAP PO DAILY, #30 CAP 2 Refills 03/21/16 SOLEDAD SOLANO MD Mar 22, 2020 13:44
[2020-03-22] MEDS ORDERED: OXYC1TAB22 PO (13:55)
[2020-03-22] MEDS ORDERED: ASPI325T11 PO (13:55)
[2020-03-22 15:14] VITALS: BP 117/56
--- NOTE | 2020-03-22 15:43 | NUR ---
Patient left around 1520 with his . BORA dressing changed prior to dismissal. Discharge education completed by this nurse, therapy, and the doctor prior to discharge. 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 IV discontinued early today. No complaints or concerns noted at discharge.
--- NOTE | 2020-03-22 18:10 | PATHOLOGY ---
[facility] Accession Number: [id number] . 01 Material submitted: . knee - RIGHT KNEE BONE AND TISSUE. Modifiers: right . 01 Clinical history: . RIGHT KNEE OA . 02 Diagnosis: Segments of bone and soft tissue, robotic assisted right total knee arthroplasty: - Advanced degenerative arthritis. 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 02 Electronically signed: . Jaun Vega MD, Pathologist NPI- [id number] . 01 Gross description: . The specimen is received in formalin, labeled "Dameon Weinberg, right knee bone and tissue". Received are multiple segments of bone, including the tibial plateau, admixed with soft tissue measuring 11.8 x 9.9 x 2.7 cm in aggregate dimensions. Meniscus is absent. The articular surfaces are smooth to granular in appearance with evidence of eburnation. The specimen is submitted representatively in cassette A1, following decalcification. ([facility]; 03/21/2020) QA/[facility] 03/21/2020 1248 Local . 02 Pathologist provided ICD-10: M17.11 . 02 CPT . 734250, [id number] Specimen Comment: A courtesy copy of this report has been sent to [phone], [phone]- Specimen Comment: [id number] Specimen Comment: Report sent to / DR BEAN Specimen Comment: A duplicate report has been generated due to demographic updates. Performed at: 01 [facility] [address], [place] [id number] MD Phillip Marte MD Phone: [phone] Performed at: 02 [facility] [address], [place] [id number] MD Jaun Vega MD Phone: [phone]
--- NOTE | 2020-03-28 12:10 | NUR ---
IV Vancomycin started at 2306 on 03/20-Stop time 0006 on 03/21 IV Cefazolin started at 0555 on 03/21--Stop time 0635 on 03/21
== END 2020-03-22 15:30 | disposition home health service (06) ==
LOC: SURG 10:21 → 4 SOUTHEST 14:47
PROVIDERS: ADMIT Orthopaedic Surgery; ATTEND Orthopaedic Surgery
DX: M17.11 Unilateral primary osteoarthritis, right knee (principal); M65.9 Synovitis and tenosynovitis, unspecified; I10 Essential (primary) hypertension; E78.5 Hyperlipidemia, unspecified; L40.50 Arthropathic psoriasis, unspecified; G47.30 Sleep apnea, unspecified; L40.9 Psoriasis, unspecified; F32.9 Major depressive disorder, single episode, unspecified; Z96.652 Presence of left artificial knee joint; Z79.01 Long term (current) use of anticoagulants; Z87.891 Personal history of nicotine dependence; Z79.82 Long term (current) use of aspirin
CPT/HCPCS: 27447; 36415; 73560; 82962; 85014; 85018; 85610; 86850; 86900; 86901; 88305; 88311; 96361; 96365; 96366; 96367; 96368; 96375; 96376; 97116; 97150; 97162; 97165; 97530; 97535; A4461; C1713; C1769; G0378; G0379; J0171; J0690; J0780; J1100; J1815; J1885; J2270; J2405; J2704; J2795; J3010; J3260; J3370; J3490; J7030; J7050; J7120